=== PATIENT | female | born 1975 | race Caucasian/White ===

== ENCOUNTER 2021-02-26 14:54 | Emergency (ER) | payer MEDICAID, SELFPAY ==
[2021-02-26 14:55] VITALS: BP 115/86; PULSE 99; RESP 20; TEMP 36.7; O2SAT 99; BMI 26.4
--- NOTE | 2021-02-26 15:03 | EKG12_ITS ---
Test Reason : MEDICAL CLEARANCE Blood Pressure : / mmHG Vent. Rate : 097 BPM Atrial Rate : 097 BPM P-R Int : 138 ms QRS Dur : 072 ms QT Int : 346 ms P-R-T Axes : 074 060 049 degrees QTc Int : 439 ms Normal sinus rhythm Normal ECG Confirmed by DAVID ESCOBAR, KIMBERLY ([id number]), film or videotape editor MARCIA BRITO ([id number]) on 02/27/2021 1:46:53 PM Referred By: YAMIL Confirmed By:KIMBERLY HERNANDEZ MD
--- NOTE | 2021-02-26 15:03 | CM.ED ---
SOCIAL WORK Received call from Claudette with Crisis prior to patient's arrival. Per Claudette, patient has been assessed and requires hospitalization. Patient hearing voices telling her to kill herself. Claudette to bring over [facility] and assessment. Staff vito. Jose Miguel Mcknight, STEAM TRAP MAN, MARRIAGE THERAPIST
--- NOTE | 2021-02-26 15:05 | NURSING ---
NO OLD EKGS
[2021-02-26 15:23] LABS: Absolute Lymphocyte Count 2.29 X10^3/uL (0.83-4.51); Absolute Neutrophil Count 8.6 X10^3/uL (2.0-7.7); Basophil# 0.06 X10^3/uL; Basophil% 0.5 % (0-1); Eosinophils% 0.9 % (0-5); Hematocrit 43.3 % (37-47); Hemoglobin 14.2 g/dL (12.0-15.0); Lymphocyte # 2.29 X10^3/ul (0.83-4.51); Lymphocyte % 19.5 % (19-41); Mean Corp Hgb Conc 32.8 g/dL (32-36); Mean Corpuscular Hgb 30.2 pg (27.0-32.0); Mean Corpuscular Volume 92.1 fL (81-99); Mean Platelet Vol. 9.6 fl (6.2-12.0); NRBC Flagged by Analyzer 0 % (0-5); Neutrophil # 8.57 X10^3/uL (2.7-7.7); Neutrophil % 72.8 % (47-70); Platelet Count 349 K/mm3 (150-450); RBC Distribution Width CV 12.5 % (11.6-14.6); RBC Distribution Width SD 42.2 fl (35.1-43.9); White Blood Count 11.8 K/mm3 (4.4-11.0)
[2021-02-26 15:38] LABS: ALB/GLOB Ratio 0.9 RATIO (0.9-2.4); AST(SGOT) 36 U/L (15-37); Alanine Aminotransfer ALT/SGPT 114 U/L (13-56); Albumin, Serum 3.6 g/dL (3.2-5.0); Alkaline Phosphatase 42 U/L (45-117); Anion Gap 6 (5-15); BUN 12 mg/dL (7-18); Calcium,Total 8.8 mg/dL (8.5-10.1); Chloride 108 mmol/L (98-107); EST Glomerular Filtration Rate 95 mL/min (>60); Est Glom Filt Rate - Afr Amer 115 mL/min (>60); Estimated Creatinine Clearance 76.58 ml/min; Globulin 3.8 g/dL (2.2-4.2); Glucose 100 mg/dL (74-106); Potassium 3.8 mmol/L (3.5-5.1); Protein, Total 7.4 g/dL (6.4-8.2); Sodium Level 140 mmol/L (136-145)
[2021-02-26 15:47] LABS: Alcohol, Blood (Medical)-Serum < 3.0 mg/dL
[2021-02-26 15:54] LABS: Internal QC Validated? YES +Cl - CLEAR BKGD; Pregnancy, Serum, hCG Quali. NEGATIVE Negative
[2021-02-26 15:59] LABS: Amphetamine Urine VISTA NEGATIVE (<1000 ng/mL); Barbiturate Urine VISTA NEGATIVE (< 200 ng/mL); Benzodiazepine Urine VISTA NEGATIVE (< 200 ng/mL); Cocaine Urine VISTA NEGATIVE (< 300 ng/mL); Ecstacy Urine VISTA NEGATIVE (< 500 ng/mL); Methadone Urine VISTA NEGATIVE (< 300 ng/mL); PCP Urine VISTA NEGATIVE (< 25 ng/mL); THC Urine VISTA NEGATIVE (< 50 ng/mL); Vista UDS pH Range 6
--- NOTE | 2021-02-26 17:20 | CM.ED ---
SOCIAL WORK Assisting Crisis with placement. Patient was requesting [facility]- full. Call to [facility]- Full Call to [place] Referrals faxed and called to [facility] and [address]. Pending review at this time. Jose Miguel Mcknight, TRIM INSTALLER, L[employer]
--- NOTE | 2021-02-26 17:29 | EX.ED.VIS.PS ---
HPI HPI - Psych History of Present Illness Chief Complaint: Mental Health Informant: patient Onset/Context/Timing Onset: Days Context: Gradual Onset Timing: Continuous Current Severity: Mild Maximum Severity: Moderate Associated Symptoms Associated Symptoms - Psych: Positive for Depressed, Suicidal Thoughts and Auditory Hallucinations Specific plan (suicidal thought): Overdose. Narrative Narrative: 45-year-old female history of bipolar disorder. Recently came out of [id number] female history of bipolar disorder. Recently came out of Detox. Patient states that she is hearing voices are telling her to overdose. She denies any attempt at this time. She states the voices are getting more frequent and more intense. She did have a prior overdose 10 years ago for which she had a lengthy hospitalization.She denies any recent illness. Prior similar symptoms: Yes Recent Illness/Hospitalization: Yes ROS ROS ED ROS Narrative Denies. Review of Systems ROS Unobtainable: Denies due to encephalopathy Constitutional Constitutional ED: Denies chills or fever(s) Eyes Eyes: Denies change in vision ENT ENT ED: Denies ear pain or sore throat Cardiovascular Cardiovascular: Denies chest pain Respiratory/Chest Respiratory/Chest: Denies cough or dyspnea Gastrointestinal Gastrointestinal: Denies abdominal pain, diarrhea, nausea or vomiting Genitourinary Genitourinary ED: Denies dysuria or hematuria Musculoskeletal Musculoskeletal: Denies arthralgias or myalgias Integumentary Denies abscess or rash Neurologic Neurologic: Denies headache(s) or weakness Psychiatric Psychiatric: Denies depression Endocrine Endocrinology: Denies polyuria Hematologic/Lymphatic Hematologic/Lymphatic: Denies easy bruising Allergic/Immunologic Allergic/Immunologic ED: Denies urticaria EXAM Physical Exam Narrative Exam Narrative: Well-appearing middle-aged female in triage. No other beds are available. Vital signs are stable afebrile. Exam unremarkable. She is awake alert. No smell of alcohol no signs of toxidrome. Lungs are clear. Heart regular rateAnd rhythm. No murmur. She is medically cleared. Const Vital Signs: 02/26/21 14:55 Temperature 98.0 F Temperature Source Temporal Pulse Rate 99 Respiratory Rate 20 H Blood Pressure 115/86 H Blood Pressure Mean 95 Pulse Ox 99 Oxygen Delivery Method Room Air Positive well nourished and well developed; Negative for obese, cachectic, contractures or unkempt General Appearance ED: well developed and NAD; Negative for unkempt, cachectic, contractures or pallor Nutritional Appearance: Negative for cachectic or obese HEENT Reports moist mucous membranes normocephalic and atraumatic; Negative for trauma or tenderness Eyes PERRL and EOMs intact bilaterally General Eye ED: Negative for pale conjunctiva or scleral icterus Neck no lymphadenopathy, supple and no JVD General: Negative for tenderness Resp normal respiratory effort and clear to auscultation bilaterally Auscultation: Negative for rales, rhonchi or wheezes Cardio S1 normal heart sound, S2 normal heart sound and no murmurs Rate: regular rate Rhythm: regular rhythm GI non-tender, non-distended and no masses Auscultation: normoactive bowel sounds Palpation: soft; Negative for tender or guarding Back/Spine no CVA tenderness General Back: Negative for CVA tenderness Cervical Spine: Negative for cervical spine tenderness Extremity normal to inspection General Extremety ED: Negative for edema or tenderness General Extremity: Negative for edema Neuro oriented x3, CN's II-XII intact bilaterally and no sensory deficits noted Sensorium / Orientation: alert, oriented to person, oriented to place and oriented to time; Negative for orientation impaired, confused, lethargic or stuporous Motor Exam: strength 5/5 throughout Psych mental status grossly normal and thought process normal; Negative for denies hallucinations Appearance: Negative for unkempt Skin General Skin Exam: Negative for jaundice or pallor Lesions: no lesions Rashes: no rashes MDM MDM MDM Narrative Medical decision making narrative: 45-year-old female with auditory hallucinations telling her to kill herself. Telling her to overdose. She denies any attempt at this time. She has had attempted overdose 10 years ago. Patient is medically cleared once we have a accepting psychiatric facility. Lab Data Attestation: I reviewed the patient's lab results. Lab results narrative: CBC White count 9.8. Hemoglobin 14. Chemistries unremarkable gap 6. Normal creatinine. Liver enzymes unremarkable.Tox screen negative. Alcohol negative. Covid negative. Labs: Laboratory Results - last 24 hr 02/26/21 02/26/21 02/26/21 15:15 15:16 15:16 WBC 11.8 H RBC 4.70 Hgb 14.2 Hct 43.3 MCV 92.1 MCH 30.2 MCHC 32.8 RDW Std Deviation 42.2 RDW Coeff of Shahrzad 12.5 Plt Count 349 MPV 9.6 Immature Gran % (Auto) 0.300 Neut % (Auto) 72.8 H Lymph % (Auto) 19.5 Clark % (Auto) 6.0 Eos % (Auto) 0.9 Baso % (Auto) 0.5 Absolute Neuts (auto) 8.6 H Absolute Lymphs (auto) 2.29 Nucleated RBC % 0 Sodium 140 Potassium 3.8 Chloride 108 H Carbon Dioxide 26.0 Anion Gap 6 BUN 12 Creatinine 0.70 Estim Creat Clear Calc 76.58 Est GFR (MDRD) Af Amer 115 Est GFR (MDRD) Non-Af 95 BUN/Creatinine Ratio 17.0 Glucose 100 Calcium 8.8 Total Bilirubin 0.30 AST 36 ALT 114 H Alkaline Phosphatase 42 L Total Protein 7.4 Albumin 3.6 Globulin 3.8 Albumin/Globulin Ratio 0.9 Serum , Qual Urine Opiates Screen NEGATIVE Urine Methadone Screen NEGATIVE Ur Barbiturates Screen NEGATIVE Ur Phencyclidine Scrn NEGATIVE Ur Amphetamines Screen NEGATIVE U Methamphetamin-MDMA NEGATIVE U Benzodiazepines Scrn NEGATIVE Urine Cocaine Screen NEGATIVE U Cannabinoids Screen NEGATIVE Ur Drug Screen Comment Ethyl Alcohol 02/26/21 02/26/21 15:16 15:16 WBC RBC Hgb Hct MCV MCH MCHC RDW Std Deviation RDW Coeff of Shahrzad Plt Count MPV Immature Gran % (Auto) Neut % (Auto) Lymph % (Auto) Clark % (Auto) Eos % (Auto) Baso % (Auto) Absolute Neuts (auto) Absolute Lymphs (auto) Nucleated RBC % Sodium Potassium Chloride Carbon Dioxide Anion Gap BUN Creatinine Estim Creat Clear Calc Est GFR (MDRD) Af Amer Est GFR (MDRD) Non-Af BUN/Creatinine Ratio Glucose Calcium Total Bilirubin AST ALT Alkaline Phosphatase Total Protein Albumin Globulin Albumin/Globulin Ratio Serum , Qual NEGATIVE Urine Opiates Screen Urine Methadone Screen Ur Barbiturates Screen Ur Phencyclidine Scrn Ur Amphetamines Screen U Methamphetamin-MDMA U Benzodiazepines Scrn Urine Cocaine Screen U Cannabinoids Screen Ur Drug Screen Comment Ethyl Alcohol < 3.0 Rhythm Strip Rhythm Strip: Sinus Rhythm Rate: 97 Ectopy: None EKG Initial EKG: Attestation: I personally reviewed and interpreted this EKG as follows: Interpretation: Sinus Rhythm and No Acute Injury Pattern Comments: Normal sinus rhythm rate of 97 no signs of acute NM nor ischemia nor dysrhythmia. Prior EKG tracings: not available for review Discharge Plan Triage Chief Complaint: Mental Health ED Provider: Lexx Peck Dx/Rx/DC Orders Clinical Impression: Auditory hallucination, Depression with suicidal ideation, History of bipolar disorder Primary Care Provider: Care Physician,No Primary Referrals: Care Physician,No Primary [Primary Care Provider] - Disposition Disposition: Psychiatric Hospital or Unit
--- NOTE | 2021-02-26 19:37 | CM.ED ---
SOCIAL WORK Call to [facility] has not reviewed referral at this time and beds are tight. Call to [facility] states did not receive referral, informed fax was confirmed at 5:11p. Intake reports to have beds and requests referral be re-faxed at this time. Patient and staff updated. Jose Miguel Mcknight MSW,SWEEP MOLDER
--- NOTE | 2021-02-26 19:48 | CM.ED ---
SOCIAL WORK Betina with [facility] requesting update once patient is accepted. Betina Cruzito- [phone]. Pending acceptance at [facility]. ARIEL Porter, MANAGING MANAGER
[2021-02-26] MEDS: LORazepam 2 MG/ML Syringe 1 MG IM (20:15)
[2021-02-26 20:20] VITALS: PULSE 96
[2021-02-26 20:26] VITALS: BP 127/81; PULSE 97; RESP 20; O2SAT 98
[2021-02-26] MEDS: LORazepam 2 MG/ML Syringe 1 MG IV (20:31)
--- NOTE | 2021-02-26 20:31 | CM.ED ---
Addendum entered by Jessica Mcknight 02/26/21 21:19: Call to Evelia with Crisis to update. Original Note: SOCIAL WORK Patient with seizure x2. Patient had been accepted to [facility]. Will await medical clearance at this time. [address] updated. Jose Miguel Mcknight, ARIEL, PLUMBING SERVICE TECHNICIAN
--- NOTE | 2021-02-26 20:33 | ED.RN ---
pt had another seizure while back in ED room. approx 1 min. IV ativan was given. pt postical and sleeping for approx 5 min and now alert/oriented x3 but drowsy. pt stated she had missed one dose of Depakote.
[2021-02-26 22:47] VITALS: BP 108/54; PULSE 106; RESP 18; O2SAT 99
[2021-02-26 23:23] LABS: Valproic Acid (Depakene) Level 54 ug/mL (50-100)
--- NOTE | 2021-02-26 23:57 | ED.RN ---
THIS RN SPOKE WITH TAY FROM [facility]. THIS RN CONFIRMED THAT THE FACILITY RECEIVED THE FAX SENT ON PATIENTS BLOODWORK. THIS RN REQUESTED THEY CALL [facility] BACK WHEN THEY HAVE A NUMBER FOR REPORT FOR US TO BE ABLE TO CALL FOR TRANSPORT.
[2021-02-27 00:40] VITALS: BP 108/68; PULSE 84; RESP 14; TEMP 36.4; O2SAT 99
--- NOTE | 2021-02-27 00:57 | ED.RN ---
PER CAMILO AT [facility], PT IS OK FOR ADMISSION. [facility] TO CALL FOR TRANSPORTATION
--- NOTE | 2021-02-27 01:20 | ED.RN ---
report called to Rosa Maria at [facility].
[2021-02-27 05:03] VITALS: BP 103/68; PULSE 74; RESP 16; O2SAT 98
== END 2021-02-27 05:04 ==
PROVIDERS: Emergency Provider Emergency Medicine
DX: G40.909 Epilepsy, unspecified, not intractable, without status epilepticus (principal); R44.0 Auditory hallucinations; R45.851 Suicidal ideations; F31.9 Bipolar disorder, unspecified; Z79.899 Other long term (current) drug therapy
CPT/HCPCS: 36415; 80053; 80164; 80307; 82077; 84703; 85025; 87426; 93005; 96365; 96372; 96374; 99285; J7030; A4216